=== PATIENT | male | born 1990 | race Caucasian/White ===

== ENCOUNTER 2016-07-27 23:18 | Emergency (ER) | payer OTHER ==
[2016-07-28 00:43] LABS: Basophils % (Auto) 0.8 % (0.0-1.8); Eosinophils % (Auto) 4.5 % (0.0-4.3); Hematocrit 46.5 % (35.5-45.6); Hemoglobin 15.3 gm/dl (11.8-15.2); Mean Corpuscular HGB Conc 33 % (32-34); Mean Corpuscular Hemoglobin 29 pg (28-32); Mean Corpuscular Volume 89 fl (84-94); Platelet Count 216 K/mm3 (140-440); Red Blood Count 5.21 M/mm3 (3.65-5.03); Red Cell Distribution Width 13.2 % (13.2-15.2); White Blood Count 7.9 K/mm3 (4.5-11.0)
--- NOTE | 2016-07-28 00:54 | XRay Report ---
FINAL REPORT EXAM: XR CHEST ROUTINE 2V HISTORY: COUGHING / FEVER COMPARISON: None available. FINDINGS:: Frontal and lateral views of the chest obtained. Cardiac silhouette is within normal limits. Shallow inspiration with crowding of bronchovascular markings. Faint hazy opacity projecting of the right upper lung concerning for area of atelectasis versus pneumonia. No large effusion or pneumothorax. Bony structures are grossly intact. IMPRESSION:: Hazy opacity right upper lung concerning for pneumonia versus atelectasis. Remaining lungs are clear.
[2016-07-28 01:05] LABS: Anion Gap 18 mmol/L; Blood Urea Nitrogen 19 mg/dL (9-20); Calcium 9.6 mg/dL (8.4-10.2); Carbon Dioxide 25 mmol/L (22-30); Chloride 102.5 mmol/L (98-107); Glucose 81 mg/dL (75-100); Potassium 3.8 mmol/L (3.6-5.0); Sodium 142 mmol/L (137-145)
[2016-07-28] MEDS ORDERED: DUONEB 0.5 MG-3 MG/3 ML SOLN IH ONE (04:30)
[2016-07-28] MEDS ORDERED: NACL 0.9% 1000 ML 1,000 ML IV ONE (04:30)
[2016-07-28] MEDS ORDERED: TESSALON PERLES PO ONE (04:31)
[2016-07-28] MEDS ORDERED: TORADOL IV ONE (04:31)
[2016-07-28] MEDS ORDERED: ZOFRAN IV ONE (04:32)
--- NOTE | 2016-07-28 04:36 | Emergency Department Report ---
ED General Adult HPI - General Chief complaint: Upper Respiratory Infection Stated complaint: EMESIS/FEVER/BODY PAIN Time Seen by Provider: 07/28/16 04:13 Source: patient Mode of arrival: Ambulatory Limitations: No Limitations - History of Present Illness Initial comments: PT states he returned from [place] 1 week ago and he worked in [employer] for a week. PT states this past week he has been sick with cough, fever, vomiting. PT states that he has had a cough "for a while" but for the last 2-3 days, he has had a productive cough with green sputum. PT states that he has also had decreased po intake for two days due to R flank pain and vomiting. PT states his pain is worse after he eats. PT states he has been told by his doctor that he he has a liver problem and to drink more water. PT states that while he was on vacation, he did not drink much water and he had increase po intake of ETOH MD Complaint: cough/ abd pain Onset/Timin -: Gradual, week(s) Location: abdomen Severity scale (0 -10): 10 Quality: constant Consistency: constant Worsens with: eating, movement Associated Symptoms: cough, loss of appetite, malaise, nausea/vomiting. denies : chest pain, fever/chills, headaches, shortness of breath Treatments Prior to Arrival: other (nyquil ) - Related Data Previous Rx's Medication Instructions Recorded Last Taken Type Fluticasone [Flonase] 1 spray NS QDAY #1 bottle 11/06/14 Unknown Rx Ibuprofen [Motrin] 800 mg PO Q8HR PRN #15 tablet 11/06/14 Unknown Rx Albuterol Sulfate [Ventolin HFA] 2 puff IH Q4H PRN #1 hfa.aer.ad 07/28/16 Unknown Rx Azithromycin [Zithromax] 250 mg PO DAILY #6 tablet 07/28/16 Unknown Rx Benzonatate [Tessalon Perles] 100 mg PO Q8HR PRN #12 capsule 07/28/16 Unknown Rx Ibuprofen [Motrin] 600 mg PO Q8H PRN #15 tablet 07/28/16 Unknown Rx Promethazine Dm [Phenergan Dm 5 ml PO Q6H PRN #120 07/28/16 Unknown Rx 6.25/15 mg 5 ml] Allergies Allergy/AdvReac Type Severity Reaction Status Date / Time Penicillins Allergy Shortness Verified 07/27/16 23:56 of Breath ED Review of Systems ROS: Stated complaint: EMESIS/FEVER/BODY PAIN Other details as noted in HPI Comment: All other systems reviewed and negative Constitutional: denies: chills, diaphoresis, fever ENT: throat pain. denies: ear pain Respiratory: cough. denies: shortness of breath, wheezing Cardiovascular: denies: chest pain Gastrointestinal: abdominal pain, nausea, vomiting. denies: diarrhea Musculoskeletal: denies: back pain ED Past Medical Hx - Past Medical History Previous Medical History?: No - Surgical History Past Surgical History?: No - Social History Smoking Status: Current Every Day Smoker Substance Use Type: None - Medications Home Medications: Home Medications Medication Instructions Recorded Confirmed Last Taken Type Fluticasone [Flonase] 1 spray NS QDAY #1 bottle 11/06/14 Unknown Rx Ibuprofen [Motrin] 800 mg PO Q8HR PRN #15 tablet 11/06/14 Unknown Rx Albuterol Sulfate [Ventolin HFA] 2 puff IH Q4H PRN #1 hfa.aer.ad 07/28/16 Unknown Rx Azithromycin [Zithromax] 250 mg PO DAILY #6 tablet 07/28/16 Unknown Rx Benzonatate [Tessalon Perles] 100 mg PO Q8HR PRN #12 capsule 07/28/16 Unknown Rx Ibuprofen [Motrin] 600 mg PO Q8H PRN #15 tablet 07/28/16 Unknown Rx Promethazine Dm [Phenergan Dm 5 ml PO Q6H PRN #120 07/28/16 Unknown Rx 6.25/15 mg 5 ml] ED Physical Exam - General Limitations: No Limitations General appearance: alert, in no apparent distress, obese - Head Head exam: Present: atraumatic, normocephalic - Eye Eye exam: Present: normal appearance, PERRL. Absent: conjunctival injection - ENT ENT exam: Present: normal exam, normal orophraynx, mucous membranes moist, TM's normal bilaterally, normal external ear exam - Neck Neck exam: Present: normal inspection, full ROM - Respiratory Respiratory exam: Present: normal lung sounds bilaterally. Absent: respiratory distress, wheezes, rales, rhonchi, chest wall tenderness, accessory muscle use - Cardiovascular Cardiovascular Exam: Present: regular rate, normal rhythm, normal heart sounds - GI/Abdominal GI/Abdominal exam: Present: soft, tenderness, normal bowel sounds. Absent: guarding, rebound - Expanded GI/Abdominal Exam Expanded GI/Abdominal exam: Present: Prescott's sign. Absent: tenderness at [place]'s [place], ascites - Extremities Exam Extremities exam: Present: normal inspection, full ROM - Back Exam Back exam: Present: normal inspection, full ROM. Absent: tenderness, CVA tenderness (R), CVA tenderness (L) - Neurological Exam Neurological exam: Present: alert, oriented X3 - Psychiatric Psychiatric exam: Present: normal affect, normal mood - Skin Skin exam: Present: warm, dry, intact, normal color. Absent: rash ED Course Vital Signs 07/27/16 07/28/16 23:56 07:00 Temperature 98.2 F 98.5 F Pulse Rate 83 78 Respiratory 22 18 Rate Blood Pressure 154/101 Blood Pressure 139/68 [Left] O2 Sat by Pulse 98 100 Oximetry - Reevaluation(s) Reevaluation #1: 07/28/16 04:37 PT aware of plan of care. PT has no questions at this time. Reevaluation #2: 07/28/16 06:39 PT states he is feeling better. PT aware of US result and need to follow up. PT advised to avoid ETOH, fried and fatty foods. PT verbalizes understanding. PT has tolerated po intake. no abd pain at this time. - Pulse Oximetry Interpretation Digit-Finger Initial Pulse Oximetry Readin Actions Taken: none ED Medical Decision Making - Lab Data Result diagrams: 07/28/16 00:05 07/28/16 00:05 Laboratory Results - last 24 hr 07/28/16 07/28/16 07/28/16 00:05 00:05 05:17 WBC 7.9 RBC 5.21 H Hgb 15.3 H Hct 46.5 H MCV 89 MCH 29 MCHC 33 RDW 13.2 Plt Count 216 Lymph % (Auto) 43.8 H Cloud % (Auto) 7.3 Eos % (Auto) 4.5 H Baso % (Auto) 0.8 Lymph # 3.5 Cloud # 0.6 Eos # 0.4 Baso # 0.1 Seg Neutrophils % 43.6 Seg Neutrophils # 3.4 Sodium 142 Potassium 3.8 Chloride 102.5 Carbon Dioxide 25 Anion Gap 18 BUN 19 Creatinine 1.0 Estimated GFR > 60 BUN/Creatinine Ratio 19.00 Glucose 81 Calcium 9.6 Total Bilirubin Direct Bilirubin Indirect Bilirubin AST ALT Alkaline Phosphatase Total Protein Albumin Albumin/Globulin Ratio Lipase 33 / 05:17 WBC RBC Hgb Hct MCV MCH MCHC RDW Plt Count Lymph % (Auto) Cloud % (Auto) Eos % (Auto) Baso % (Auto) Lymph # Cloud # Eos # Baso # Seg Neutrophils % Seg Neutrophils # Sodium Potassium Chloride Carbon Dioxide Anion Gap BUN Creatinine Estimated GFR BUN/Creatinine Ratio Glucose Calcium Total Bilirubin 0.20 Direct Bilirubin < 0.2 Indirect Bilirubin 0.0 AST 28 ALT 41 Alkaline Phosphatase 87 Total Protein 7.3 Albumin 4.2 Albumin/Globulin Ratio 1.4 Lipase - Radiology Data Radiology results: report reviewed CXR- RUL hazy opacity US gallbladder - fatty liver, gallbladder sludge vs tiny stones - Differential Diagnosis viral illness, pna, bronchitis, cholecysitis Critical Care Time: No Critical care attestation.: If time is entered above; I have spent that time in minutes in the direct care of this critically ill patient, excluding procedure time. ED Disposition Clinical Impression: CAP (community acquired pneumonia), Fatty liver Nausea & vomiting Qualifiers: Vomiting type: unspecified Vomiting Intractability: non-intractable Qualified Code(s): R11.2 - Nausea with vomiting, unspecified Disposition: DC-01 TO HOME OR SELFCARE Is pt being admited?: No Does the pt Need Aspirin: No Condition: Stable Instructions: Biliary Colic (ED), Community-acquired Pneumonia (ED), Non- Alcoholic Fatty Liver Disease (ED), Bacterial Pneumonia (ED) Additional Instructions: Follow up with PCP in 3-5 days recheck your bp at follow up Follow up with GI for your liver Avoid alcohol, fatty foods, and fried foods. Prescriptions: Albuterol Sulfate [Ventolin HFA] 2 puff IH Q4H PRN #1 hfa.aer.ad PRN Reason: Shortness Of Breath Azithromycin [Zithromax] 250 mg PO DAILY #6 tablet Benzonatate [Tessalon Perles] 100 mg PO Q8HR PRN #12 capsule PRN Reason: Cough Ibuprofen [Motrin] 600 mg PO Q8H PRN #15 tablet PRN Reason: Pain Promethazine Dm [Phenergan Dm 6.25/15 mg 5 ml] 5 ml PO Q6H PRN #120 PRN Reason: Cough Referrals: PRIMARY CAREMD [Primary Care Provider] - 3-5 Days MARQUIS HASSAN MD [Staff Physician] - 3-5 Days [facility] [Provider Group] - 3-5 Days Forms: Work/School Release Form(ED) Time of Disposition: 06:48
--- NOTE | 2016-07-28 05:15 | Ultrasound Report ---
FINAL REPORT EXAM: US ABDOMEN LIMITED HISTORY: ruq abd pain TECHNIQUE: Right upper quadrant ultrasound PRIORS: None. FINDINGS: Examination of the gallbladder demonstrates a few vague echoes in the neck of the gallbladder which may represent sludge or tiny stones. There is no evidence for shadowing gallstones, distention, wall thickening, or pericholecystic fluid. No sonographic Prescott's sign is elicited. Common bile duct is normal in diameter measuring 2.9 mm. The liver is mildly increased but homogeneous in echogenicity without focal abnormality or intrahepatic biliary dilatation. Findings are consistent with fatty liver. The visualized portions of the pancreas are normal in thickness without focal abnormality or pancreatic duct dilatation. The distal pancreatic tail is not visualized due to bowel gas. The aorta is normal in caliber. However, only the mid abdominal aorta is visualized measuring 1 cm in diameter. The right kidney is normal in size without calculi or hydronephrosis. Right kidney measures 11.3 cm in craniocaudal length. IMPRESSION: 1. Few echoes identified in the neck of the gallbladder which may be sludge or tiny stones. 2. Echogenicity liver is mildly increased consistent with fatty metamorphosis
[2016-07-28 05:54] LABS: Alanine Aminotransferase 41 units/L (7-56); Albumin 4.2 g/dL (3.9-5); Albumin/Globulin Ratio 1.4 %; Alkaline Phosphatase 87 units/L (35-129); Bilirubin,Direct < 0.2 mg/dL (0-0.2); Total Protein 7.3 g/dL (6.3-8.2)
[2016-07-28 07:10] VITALS: BP 139/68
== END 2016-07-28 07:00 | disposition home or self-care (01) ==
LOC: ED 23:18
DX: J18.9 Pneumonia, unspecified organism (principal); K76.0 Fatty (change of) liver, not elsewhere classified; F17.210 Nicotine dependence, cigarettes, uncomplicated; Z88.0 Allergy status to penicillin
CPT/HCPCS: 36415; 71020; 76705; 80048; 80074; 83690; 85025; 96361; 96374; 96375; 99284; J1885; J2405; J7030